=== PATIENT | female | born 1990 | race Caucasian/White ===

== ENCOUNTER → 2021-05-07 14:05 | Outpatient (CLI) | payer BC, SELFPAY | PROVIDERS: PCP Nurse Practitioner Family; Referring Provider Internal Medicine Rheumatology; Visit Provider Internal Medicine Rheumatology | DX: M06.00 Rheumatoid arthritis without rheumatoid factor, unspecified site (principal); M21.41 Flat foot [pes planus] (acquired), right foot; M24.80 Other specific joint derangements of unspecified joint, not elsewhere classified; E03.9 Hypothyroidism, unspecified; Z79.899 Other long term (current) drug therapy ==

== ENCOUNTER → 2024-01-02 | Outpatient (CLI) | payer BC, SELFPAY | END | disposition home or self-care (01) | PROVIDERS: PCP Nurse Practitioner Family; Referring Provider Internal Medicine Rheumatology; Visit Provider Internal Medicine Rheumatology | DX: M06.00 Rheumatoid arthritis without rheumatoid factor, unspecified site (principal); M25.561 Pain in right knee ==

== ENCOUNTER → 2024-01-09 | Outpatient (CLI) | payer BC, SELFPAY ==
[2024-01-09 17:05] LABS: Pathologist Comment May follow
[2024-01-09 18:18] LABS: AUTO B FLUID DILUENT BKGD CT WBC <0.1 RBC <0.01 (W<.1,R<.01); Source / Synovial Fluid LEFT KNEE; Source- Body Fluid SYNOVIAL
[2024-01-09 18:19] LABS: Appearance /Synovial Fluid Sl Cl (CLEAR); Color / Synovial Fluid Yellow (Pale Yellow); Viscosity / Synovial Fluid Sl. Viscous (HIGH)
[2024-01-09 18:52] LABS: Synovial Fld Mononuclear WBC % 12.6 %; Synovial Fld Polynuclear WBC % 87.4 %
[2024-01-09 19:37] LABS: RBC /Synovial Fluid 84 /mm3 (0)
[2024-01-09 19:44] LABS: CRYSTALS, BODY FLUID NO CRYSTALS SEEN
[2024-01-09 19:54] LABS: Lymph 3 %; Monocyte /Synovial Fluid 10 %; Neutrophil 87 % (0-25)
[2024-01-09 19:55] LABS: Body Fluid QC Type(s) BF1Q,BF2Q
[2024-01-10 15:27] LABS: Pathologist Review Reviewed
== END | disposition home or self-care (01) ==
LOC: LABSPEC 15:50
PROVIDERS: PCP Nurse Practitioner Family; Referring Provider Internal Medicine Rheumatology; Visit Provider Internal Medicine Rheumatology
DX: M06.00 Rheumatoid arthritis without rheumatoid factor, unspecified site (principal); M25.562 Pain in left knee
CPT/HCPCS: 87070; 87075; 87205; 89050; 89051; 89060